=== PATIENT | female | born 1970 | race Caucasian/White ===

== ENCOUNTER 2018-06-09 21:49 | Emergency (ER) | payer OTHER, MEDICAID ==
[2018-06-09 23:52] LABS: URINE BLOOD (Dip) POC 3+ (NEGATIVE); URINE GLUCOSE (Dip) POC Negative (NEGATIVE); URINE KETONES (Dip) POC Negative (NEGATIVE); URINE LEUKOCYTE EST (Dip) POC Negative (NEGATIVE); URINE NITRITE (Dip) POC Negative (NEGATIVE); URINE TOTAL PROTEIN POC 1+ (NEGATIVE)
[2018-06-10] MEDS: CEFTRIAXONE 250 MG INJ IM (01:30)
[2018-06-10] MEDS: LIDOCAINE 2% (MDV) 20 ML INJ INJ (01:30)
== END 2018-06-10 01:57 | disposition home or self-care (01) ==
LOC: FTE 06-10 01:57
DX: R10.2 Pelvic and perineal pain (principal); I10 Essential (primary) hypertension; F17.210 Nicotine dependence, cigarettes, uncomplicated
CPT/HCPCS: 76830; 76856; 81003; 81025; 87591; 96372; 99284-25

== ENCOUNTER 2018-08-11 15:34 | Emergency (ER) | payer OTHER ==
[2018-08-11] MEDS: BUPIVACAINE 0.25% (MPF) 30 ML INJ INJ (17:12)
[2018-08-11] MEDS: BUPIVACAINE 0.25% (MPF) 10 ML 10 ML VIAL INJ (17:13)
== END 2018-08-11 18:03 | disposition home or self-care (01) ==
LOC: FTE 15:34
DX: M62.830 Muscle spasm of back (principal); F32.9 Major depressive disorder, single episode, unspecified; I10 Essential (primary) hypertension; E11.9 Type 2 diabetes mellitus without complications; F17.210 Nicotine dependence, cigarettes, uncomplicated
CPT/HCPCS: 20552; 99283-25

== ENCOUNTER 2019-05-20 17:28 | Observation (INO) | payer OTHER ==
[2019-05-20] MEDS ORDERED: NITROGLYCERIN (SL) 0.4 MG TAB SL (18:00)
[2019-05-20 18:07] LABS: ADD MAN DIFF? NO
[2019-05-20 18:10] LABS: BASOPHILS % 0.5 % (0.0-2.0); EOSINOPHILS # 0.2 10^3/ul (0.0-0.5); EOSINOPHILS % 2.3 % (0.0-7.0); HEMATOCRIT 39.7 % (37.0-47.0); HEMOGLOBIN 13.2 g/dl (12.0-16.0); LYMPHOCYTES # 3.4 10^3/ul (0.8-2.9); LYMPHOCYTES % 38.4 % (15.0-51.0); MEAN CORPUSCULAR HEMOGLOBIN 28.2 pg (29.0-33.0); MEAN CORPUSCULAR HGB CONC 33.2 g/dl (32.0-37.0); MEAN CORPUSCULAR VOLUME 84.8 fl (82.0-101.0); MONOCYTE # 0.6 10^3/ul (0.3-0.9); MONOCYTES % 6.3 % (0.0-11.0); NEUTROPHIL # 4.5 10^3/ul (1.6-7.5); NEUTROPHILS % 51.8 % (39.0-77.0); PLATELET COUNT 287 10^3/UL (140-415); RED BLOOD COUNT 4.68 10^6/ul (4.20-5.40); RED CELL DISTRIBUTION WIDTH 13.1 % (11.5-14.5)
[2019-05-20 18:10] LABS: WHITE BLOOD COUNT 8.7 10^3/ul (4.8-10.8)
[2019-05-20] MEDS: NITROGLYCERIN 2% 1 GM OINT PKT TD (18:10)
[2019-05-20 18:28] LABS: ANION GAP 12 (5-13); BLOOD UREA NITROGEN 15 mg/dl (7-20); CALCIUM 9.7 mg/dl (8.4-10.2); CARBON DIOXIDE 29 mmol/L (21-31); CHLORIDE 99 mmol/L (97-110); CREATININE 0.63 mg/dl (0.44-1.00); Estimated GFR > 60 mL/min (>60); GLUCOSE 145 mg/dl (70-220); POTASSIUM 3.2 mmol/L (3.5-5.1); SODIUM 140 mmol/L (135-144)
[2019-05-20 18:39] LABS: TROPONIN-I < 0.012 ng/ml (0.000-0.120)
[2019-05-20] MEDS: POTASSIUM CHLORIDE (SR) 20 MEQ TAB PO (19:48)
[2019-05-20] MEDS: LABETALOL HCL 20MG INJ IV (20:00)
[2019-05-20] MEDS ORDERED: ONDANSETRON 4 MG INJ IV (20:30)
[2019-05-20] MEDS ORDERED: ACETAMINOPHEN 325 MG TAB PO (20:30)
[2019-05-21 00:41] LABS: CREATINE KINASE 58 IU/L (23-200)
[2019-05-21 00:54] LABS: CK INDEX 0.4; CK-MB 0.22 ng/ml (0.0-2.4); TROPONIN-I < 0.012 ng/ml (0.000-0.120)
[2019-05-21] MEDS ORDERED: ONDANSETRON 4 MG INJ IV (02:00)
[2019-05-21] MEDS ORDERED: GLUCOSE GEL 15 GRAM TUBE BUCCAL (02:30)
[2019-05-21] MEDS ORDERED: GLUCOSE GEL 15 GRAM TUBE PO ×2 (02:30)
[2019-05-21] MEDS ORDERED: DEXTROSE 50% 50 ML SYRINGE IV ×2 (02:30)
[2019-05-21] MEDS ORDERED: GLUCAGON 1 MG INJ IM (02:30)
[2019-05-21] MEDS: INSULIN ASPART [NOVOLOG] 3 ML PEN SC ×4 (05:00→17:00)
[2019-05-21] MEDS: ACETAMINOPHEN 325 MG TAB PO (05:27)
[2019-05-21 05:37] LABS: ADD MAN DIFF? NO
[2019-05-21 05:46] LABS: BASOPHIL # 0.1 10^3/ul (0.0-0.1); BASOPHILS % 0.6 % (0.0-2.0); EOSINOPHILS # 0.2 10^3/ul (0.0-0.5); EOSINOPHILS % 2.2 % (0.0-7.0); HEMATOCRIT 40.3 % (37.0-47.0); HEMOGLOBIN 13.3 g/dl (12.0-16.0); LYMPHOCYTES # 3.2 10^3/ul (0.8-2.9); LYMPHOCYTES % 35.8 % (15.0-51.0); MEAN CORPUSCULAR VOLUME 84.8 fl (82.0-101.0); MEAN PLATELET VOLUME 10.1 fl (7.4-10.4); MONOCYTE # 0.6 10^3/ul (0.3-0.9); MONOCYTES % 6.3 % (0.0-11.0); NEUTROPHIL # 4.9 10^3/ul (1.6-7.5); NEUTROPHILS % 54.5 % (39.0-77.0); PLATELET COUNT 281 10^3/UL (140-415); RED BLOOD COUNT 4.75 10^6/ul (4.20-5.40)
[2019-05-21 05:52] LABS: CREATINE KINASE 51 IU/L (23-200)
[2019-05-21 06:04] LABS: CK INDEX 0.5; CK-MB 0.24 ng/ml (0.0-2.4); TROPONIN-I < 0.012 ng/ml (0.000-0.120)
[2019-05-21 07:05] LABS: ALANINE AMINOTRANSFERASE 33 IU/L (13-69); ALBUMIN 3.9 g/dl (3.3-4.9); ALBUMIN/GLOBULIN RATIO 1.25; ALKALINE PHOSPHATASE 76 IU/L (42-121); ANION GAP 7 (5-13); ASPARTATE AMINO TRANSFERASE 23 IU/L (15-46); BILIRUBIN,INDIRECT 0.5 mg/dl (0-1.1); BILIRUBIN,TOTAL 0.5 mg/dl (0.2-1.3); BLOOD UREA NITROGEN 12 mg/dl (7-20); CALCIUM 9.7 mg/dl (8.4-10.2); CARBON DIOXIDE 33 mmol/L (21-31); CHLORIDE 100 mmol/L (97-110); CHOL/HDL RATIO 3.4 RATIO; CHOLESTEROL 171 mg/dl (100-200); CREATININE 0.53 mg/dl (0.44-1.00); Estimated GFR > 60 mL/min (>60); GLUCOSE 127 mg/dl (70-220); HDL CHOLESTEROL 50 mg/dl (37-92); LDL CHOLESTEROL,CALCULATED 104 mg/dl; POTASSIUM 3.1 mmol/L (3.5-5.1); SODIUM 140 mmol/L (135-144); TRIGLYCERIDES 87 mg/dl (0-149)
[2019-05-21] MEDS: ASPIRIN 81 MG TAB PO (09:00)
[2019-05-21] MEDS: REGADENOSON 0.4 MG/5 ML SYG (13:03)
[2019-05-21] MEDS: ATORVASTATIN 10 MG TAB PO (15:40)
[2019-05-21] MEDS: ATENOLOL 100 MG TAB PO (15:41)
[2019-05-21] MEDS: AMLODIPINE 5 MG TAB PO (15:41)
[2019-05-22] MEDS ORDERED: ACCU-CHEK XX (02:00)
== END 2019-05-21 17:50 | disposition home or self-care (01) ==
LOC: 6WM 23:56 → E/R 17:28
DX: R07.89 Other chest pain (principal); I10 Essential (primary) hypertension; E11.9 Type 2 diabetes mellitus without complications; Z79.84 Long term (current) use of oral hypoglycemic drugs; Z83.3 Family history of diabetes mellitus
CPT/HCPCS: 36415; 71045; 78452; 80048; 80053; 80061; 82550; 82553; 82962; 84484; 85025; 93005; 93017; 93306; 99285-25